=== PATIENT | female | born 1975 | race Hispanic/Latino ===

== ENCOUNTER 2019-04-03 19:51 | Inpatient (IN) | payer MEDICAID, OTHER ==
[~2019-04-03] VITALS: Ht 149.9 cm; Wt 55.3 kg
[2019-04-03] MEDS ORDERED: LACTATED RINGERS 1000ML 1,000 ML IV PRN (20:09)
[2019-04-03] MEDS ORDERED: OXYTOCIN-LR 20 UNITS/1000 ML 1,000 ML IV SCH (20:15)
[2019-04-03] MEDS ORDERED: OXYTOCIN-LR 20 UNITS/1000 ML 1,000 ML IV ONE (20:18)
[2019-04-03 20:57] LABS: HEMATOCRIT 35.6 % (36-48); MEAN CORPUSCULAR HEMOGLOBIN 31.9 pg (27.0-33.0); MEAN CORPUSCULAR HGB CONC 34.4 g/dL (32.0-36.0); MEAN CORPUSCULAR VOLUME 92.8 fL (79-99); PLATELET COUNT (AUTO) 253 K/uL (130-400); RED BLOOD CELL COUNT(AUTO) 3.83 MIL/uL (4.00-5.50); RED CELL DISTRIBUTION WIDTH 12.9 % (11.0-15.5); WHITE BLOOD COUNT (AUTO) 10.9 K/uL (4.8-10.8)
[2019-04-03 22:45] VITALS: BP 109/58
[2019-04-03 22:56] VITALS: BP 131/84
[2019-04-03] MEDS ORDERED: FERR-82 PO (23:19)
[2019-04-03] MEDS ORDERED: PREN1TAB80 PO (23:19)
[2019-04-04] MEDS ORDERED: OXYTOCIN-LR 20 UNITS/1000 ML 1,000 ML IV ONE (00:26)
[2019-04-04 03:41] VITALS: BP 107/64
[2019-04-04 05:56] LABS: BASOPHILS % (AUTO) 0.5 % (0.0-5.0); EOSINOPHILS % (AUTO) 0.3 % (0.0-8.0); HEMATOCRIT 33.6 % (36-48); LYMPHOCYTES % (AUTO) 21.6 % (21.0-51.0); MEAN CORPUSCULAR HEMOGLOBIN 32.2 pg (27.0-33.0); MEAN CORPUSCULAR HGB CONC 34.7 g/dL (32.0-36.0); MONOCYTES % (AUTO) 3.8 % (3.0-13.0); NEUTROPHILS % (AUTO) 73.8 % (40.0-77.0); PLATELET COUNT (AUTO) 212 K/uL (130-400); RED BLOOD CELL COUNT(AUTO) 3.62 MIL/uL (4.00-5.50); RED CELL DISTRIBUTION WIDTH 12.8 % (11.0-15.5); WHITE BLOOD COUNT (AUTO) 13.1 K/uL (4.8-10.8)
[2019-04-04 07:25] VITALS: BP 112/57
[2019-04-04] MEDS ORDERED: IBUPROFEN 600 MG TABLET PO PRN (10:15)
[2019-04-04] MEDS ORDERED: BENZOCAINE/LANOLIN/ALOE VERA 60 ML AEROSOL TP PRN (10:15)
[2019-04-04] MEDS ORDERED: WITCH HAZEL 1 PAD TP PRN (10:15)
[2019-04-04] MEDS ORDERED: LANOLIN 30GM OINTMENT TP PRN (10:15)
[2019-04-04] MEDS ORDERED: ACETAMINOPHEN 325 MG TAB PO PRN (10:15)
[2019-04-04] MEDS ORDERED: DOCUSATE SODIUM 100 MG CAP PO SCH ×2 (10:15→21:00)
[2019-04-04] MEDS ORDERED: ACETAMINOPHEN-CODEINE 300/30MG TAB PO PRN (10:15)
[2019-04-04 11:17] VITALS: BP 114/63
[2019-04-04 16:00] VITALS: BP 94/66
--- NOTE | 2019-04-04 16:30 | NUR ---
DISCHARGE TEACHING DISCHARGE TEACHING REVIEWED WITH PATIENT IN [place]. PATIENT VERBALIZED UNDERSTANDING AND ASKED QUESTIONS. DISCHARGE PACKET GIVEN TO PATIENT.
--- NOTE | 2019-04-04 17:58 | NUR ---
Sw contacted by nursery nurse christin with concerns of pt. Per nurse, pt is calling for assistance to move, change and assist with placing baby on breast. Pt not doing anything on her own. Concerns for assistance and help at home. Sw met with pt who was up walking in room, baby on pt's bed sleeping. Pt states she just went to bathroom and now feels much better. She placed baby on bed so she could tend to babies needs. Pt states she is being discharged at 9 and needs to keep moving around. Pt states she will have lots of help at home. Nurses aware of above
--- NOTE | 2019-04-04 19:30 | NUR ---
RECEIVED REPORT FROM DAY NURSE EPHRAIM DAMON AND JIMBO SANFORD THAT PT. IS GOING HOME WITH THE BABY. DISCHARGE HOME INSTRUCTIONS WERE ALREADY GIVEN IN [place]. PT. VERBALIZED UNDERSTANDING AND SHE HAD THE COPY OF THE DISCHARGE INSTRUCTIONS. NO QUESTIONS ASKED BY THE PT.
[2019-04-04 19:36] VITALS: BP 113/71
--- NOTE | 2019-04-04 19:45 | NUR ---
RECEIVED PT. STANDING IN THE ROOM TALKING OVER THE PHONE. PT. WAS ASKING IF HER BABY RECEIVED SHOTS BECAUSE SHE DOESN'T WANT ANY SHOTS FOR THE BABY. SHE WAS ALSO TELLING ME THAT HER SIGNIFICANT OTHER WOULD NOT WANT THE BABY TO HAVE SHOTS. TOLD THE PT. THAT THE BABY DID NOT RECEIVE ANY MEDICATIONS OR PROCEDURES THAT INVOLVED INJECTIONS BECAUSE SHE AND HER SIGNIFICANT OTHER REFUSED.
--- NOTE | 2019-04-04 20:00 | NUR ---
PT IS HOLDING, HER BABY WAITING FOR HER RIDE BECAUSE SHE AND HER BABY WILL BOTH GO HOME TONIGHT. REINFORCED PT'S UNDERSTANDING ABOUT TAKING CARE OF THE BABY AT HOME, SAFETY, PERINEAL CARE USING HOT SITZ BATH WHICH SHE WILL BRING HOME AND ALSO FOLLOW UP WITH HER BABY TO HER [employer] SPECIALIST, NUTRITION AND FAMILY INVOLVEMENT IN THE CARE OF HER AND THE BABY. PT. VERBALIZED THAT SHE HAVE HELP AT HOME.
--- NOTE | 2019-04-04 21:25 | NUR ---
PT AND THE BABY ON THE WHEELCHAIR TAKEN TO THEIR PRIVATE CAR, DISCHARGE IN STABLE CONDITION. INSTRUCTIONS FOR BABY CARE WAS ALREADY GIVEN BY JENA ZHAO RN PRIOR TO DISCHARGE.
[2019-04-05 08:11] LABS: HEPATITIS Bs ANTIGEN SCREEN P Negative (Negative)
== END 2019-04-04 21:25 | disposition home or self-care (01) | DRG 807 ==
LOC: EDH 19:51 → OBSVTOIN 20:11 → LDH 20:11 → WSH 04-04 03:34
PROVIDERS: ADMIT Obstetrics & Gynecology; ATTEND Obstetrics & Gynecology
PROC: 10E0XZZ Delivery of Products of Conception, External Approach (ICD-10-PCS; principal; 2019-04-03)
PROC: 0HQ9XZZ Repair Perineum Skin, External Approach (ICD-10-PCS; 2019-04-03)
PROC: 10907ZC Drainage of Amniotic Fluid, Therapeutic from Products of Conception, Via Natural or Artificial Opening (ICD-10-PCS; 2019-04-03)
DX: O70.0 First degree perineal laceration during delivery (principal); Z37.0 Single live birth; Z3A.00 Weeks of gestation of pregnancy not specified
CPT/HCPCS: 36415; 85025; 85027; 86592; 86850; 86900; 86901; 87340; G0378; J2590